=== PATIENT | female | born 1965 | race Caucasian/White ===

== ENCOUNTER 2018-01-17 06:57 | Inpatient (IN) | payer OTHER ==
[2018-01-05 11:54] VITALS: BMI 18.0
--- NOTE | 2018-01-05 12:33 | PAT Medication Instructions ---
Service Date Jan 05, 2018. Current Home Medication List Albuterol Hfa (Ventolin Hfa), 2 PUFFS INH Q4H PRN for RN Amlodipine (Norvasc), 2.5 MG PO QAM Aspirin (Aspirin Ec), 81 MG PO QAM Calcium Carbonate-Vitamin D (Calcium + D), 1 TAB PO BID Docusate Sodium (Docusate Sodium), 2 CAP PO HS Lactulose (Chronulac), 10 GM PO TIDM Metoprolol Tartrate (Lopressor) (Lopressor), 100 MG PO BID Multivitamin (Multivitamin), 1 TAB PO QAM Ranitidine (Zantac), 300 MG PO HS Ropinirole (Requip), 1 MG PO BID Tiotropium Monroe (Spiriva Handihaler), 1 CAP INH QAM Tramadol (Ultram), 100 MG PO TID PRN for RN Trazodone HCl (Trazodone HCl), 200 MG PO HS Trazodone Hcl (Desyrel), 50 MG PO AM Medication Instructions For Your Scheduled Surgery -Contact your surgeon for instructions for: Aspirin (Aspirin Ec), 81 MG PO QAM - Hold the following medications 24 hours prior to surgery: Ropinirole (Requip), 1 MG PO BID - Hold the following medications the morning of surgery: Calcium Carbonate-Vitamin D (Calcium + D), 1 TAB PO BID Lactulose (Chronulac), 10 GM PO TIDM Multivitamin (Multivitamin), 1 TAB PO QAM - Take the following medications the morning of surgery with a sip of water: Albuterol Hfa (Ventolin Hfa), 2 PUFFS INH Q4H PRN for RN (if needed, and bring it with you to the hospital) Amlodipine (Norvasc), 2.5 MG PO QAM Metoprolol Tartrate (Lopressor) (Lopressor), 100 MG PO BID Tiotropium Monroe (Spiriva Handihaler), 1 CAP INH QAM Trazodone Hcl (Desyrel), 50 MG PO AM Tramadol (Ultram), 100 MG PO TID PRN for RN (if needed, can be taken up to four hours before surgery) - Take the following medications as scheduled the night before surgery: Albuterol Hfa (Ventolin Hfa), 2 PUFFS INH Q4H PRN for RN (if needed) Calcium Carbonate-Vitamin D (Calcium + D), 1 TAB PO BID Docusate Sodium (Docusate Sodium), 2 CAP PO HS Lactulose (Chronulac), 10 GM PO TIDM Metoprolol Tartrate (Lopressor) (Lopressor), 100 MG PO BID Ranitidine (Zantac), 300 MG PO HS Trazodone HCl (Trazodone HCl), 200 MG PO HS Tramadol (Ultram), 100 MG PO TID PRN for RN (if needed) If you have any questions please call us at [phone] or [phone] or [phone]
--- NOTE | 2018-01-05 13:10 | DIAGNOSTIC IMAGING REPORT ---
CHEST 2 VIEWS ROUTINE CLINICAL HISTORY: PAT COMPARISON STUDY: No previous studies for comparison. FINDINGS: The bones soft tissues and hemidiaphragms are normal. The cardiomediastinal silhouette is normal. The lungs are clear. The pulmonary vasculature is normal. IMPRESSION: Negative chest. The above report was generated using voice recognition software. It may contain grammatical, syntax or spelling errors. Electronically signed by: Wilber Kemp M.D. 01/05/2018 1:08 PM Dictated Date/Time: 01/05/2018 1:06 PM
[2018-01-05 13:56] LABS: BASO % 0.4 %; BASO ABS # 0.02 K/uL (0-0.2); EOS % 4.5 %; EOS ABS # 0.25 K/uL (0-0.5); HEMATOCRIT 34.6 % (37-47); HEMOGLOBIN 11.9 g/dL (12.0-16.0); IG# 0.01 K/uL (0.00-0.02); LYMPH % 41.5 %; LYMPH ABS # 2.28 K/uL (1.2-3.4); MEAN CORPUSCULAR HEMOGLOBIN 31.6 pg (25-34); MEAN CORPUSCULAR HGB CONC 34.4 g/dl (32-36); MEAN PLATELET VOLUME 10.1 fL (7.4-10.4); MONO % 11.1 %; MONO ABS # 0.61 K/uL (0.11-0.59); NEUT % 42.3 %; NEUT ABS # 2.33 K/uL (1.4-6.5); PLATELET COUNT 202 K/uL (130-400); RED CELL DISTRIBUTION WIDTH SD 43.3 fL (36.4-46.3)
[2018-01-05 14:08] LABS: PTT PATIENT 26.6 SECONDS (21.0-31.0)
[2018-01-05 17:31] LABS: CALCIUM 9.1 mg/dl (8.5-10.1); CREATININE 0.79 mg/dl (0.60-1.20); POTASSIUM 4.3 mmol/L (3.5-5.1)
--- NOTE | 2018-01-16 21:02 | HISTORY & PHYSICAL EXAMINATION ---
DATE OF ADMISSION: 01/17/2018 HISTORY OF PRESENT ILLNESS: She is being preoped for multilevel cervical spondylosis and a 4-level fusion C3-C7 cervical spine. Jadiel has been plagued with neck and arm pain for 2-3 years in duration, has failed all sorts of conservative care, has neck pain associated weakness as well. ALLERGIES: Negative. MEDICATIONS: Numerous, I reviewed these, I am not dictating ____ in her inquiry. PAST SURGICAL HISTORY: Listed. SOCIAL HISTORY: She is moderate smoker, no alcohol use. REVIEW OF SYSTEMS: She admits to neck pain, paresthesias, numbness and tingling. Denies any chest pain, palpitations, shortness of breath. No asthma, wheezing, shortness of breath. No nausea, vomiting. No urgency, frequency. She admits to upper extremity difficulties and neck pain paresis, numbness, tingling, but no lower extremity difficulty. PHYSICAL EXAMINATION: VITAL SIGNS: Blood pressure 120/80, pulse 80, respiratory rate 16, afebrile. GENERAL: Appropriately dressed. Mentation normal. HEENT: Pupils react to light and accommodation. Ear, nose and throat clear. CARDIAC: Normal S1, S2. No S3. LUNGS: Clear to auscultation. No rales, rhonchi, wheezing. ABDOMEN: Soft, nontender. MUSCULOSKELETAL: She has a positive Spurling maneuver with rotation and side bending, causing her pain. She has weakness of wrist extensors, weakness of triceps function as well. Images demonstrate multiple level cervical spondylosis with nerve root compromise. PLAN: Includes an anterior cervical discectomy and fusion C3-C4, C4-C5, C5-C6 and C6-C7 with iliac crest bone graft.
[2018-01-17] VITALS (12 sets, daily range): BP systolic 120–178; BP diastolic 70–88; PULSE 59–83; TEMP 36.3–36.7; O2SAT 100; BMI 18.0
[~2018-01-17] VITALS: Ht 160 cm; Wt 48.4 kg
[~2018-01-17 06:57] MED LIST: ACETAMINOPHEN 1000 MG/100 ML IV IV SCH; AMLO2.5T PO; ASPI81TA28 PO; CALC600T9 PO; CEFAZOLIN 2000MG IV PUSH 15 ML IV SCH; DOCU100C31 PO; DSY/150 PO; LACT10SO17 PO; LACTATED RINGER'S 1000ML 1,000 ML IV SCH; METO100T14 PO; MULT-506 PO; RANI300T2 PO; ROPI1TAB PO; SODIUM CHLORIDE 0.9% 1000ML 1,000 ML IV SCH; SPRIN/30 INH; TRAM-10 PO; TRAZ-119 PO; VNTHFA/IN INH
[2018-01-17] MEDS ORDERED: MIDAZOLAM HCL 1 MG/ML 2ML VIAL ONE (08:27)
[2018-01-17] MEDS ORDERED: FENTANYL CITRATE INJ 50 MCG/1 ML 2 ML VIAL ONE (08:27)
[2018-01-17] MEDS ORDERED: KETAMINE HCL INJ 50 MG/ML 10 ML VIAL ONE (08:39)
[2018-01-17] MEDS ORDERED: GELATIN SPONGE SZ 100 ONE (09:07)
[2018-01-17] MEDS ORDERED: THROMBIN FOR SOLN 20000 UNIT KIT ONE (09:07)
[2018-01-17] MEDS ORDERED: BACITRACIN 50000 UNIT VIAL ONE (09:08)
[2018-01-17] MEDS ORDERED: BUPIVACAINE/EPINEPHRINE 0.5% MPF 1:200,000 30 ML VIAL ONE ×2 (09:08→09:50)
--- NOTE | 2018-01-17 09:14 | History & Physical Bridge Note ---
H&P Re-Evaluation Bridge Note: I have examined the patient, reviewed the History & Physical and in the interval since the performance of the History & Physical I have noted the following changes of clinical significance: No changes noted
[2018-01-17] MEDS ORDERED: HYDROmorphone INJ 2 MG/ML SYR/VIAL ONE (10:12)
[2018-01-17] MEDS ORDERED: ROCURONIUM BROMIDE 10 MG/ML 5 ML VIAL IV ONE (10:19)
[2018-01-17] MEDS ORDERED: PROPOFOL IV EMULSION 10 MG/ML 20 ML VIAL IV ONE (12:06)
[2018-01-17] MEDS ORDERED: ONDANSETRON INJ 2 MG/ML 2 ML VIAL ONE (12:06)
[2018-01-17] MEDS ORDERED: DEXAMETHASONE SOD INJ 4 MG/ML VIAL ONE (12:07)
[2018-01-17] MEDS ORDERED: NEOSTIGMINE METHYLSULFATE 5 MG/5 ML SYR ONE (12:08)
[2018-01-17] MEDS ORDERED: GLYCOPYRROLATE INJ 0.2 MG/ML VIAL ONE (12:08)
--- NOTE | 2018-01-17 12:23 | [facility] Post Operative Brief Note ---
Immediate Operative Summary Operative Date Jan 17, 2018. Pre-Operative Diagnosis Multiple level cervical spondylosis with nerve root compromise. Post-Operative Diagnosis Multiple level cervical spondylosis with nerve root compromise. Procedure(s) Performed C3-C4, C4-C5, C5-C6, C6-C7 Anterior Cervical Discectomy and Fusion with Iliac Crest Bone Graft Surgeon Dr. Viera Sales Promoter Surgeon(s) Javi Lind PA-C Estimated Blood Loss 20ml Findings Consistent with Post-Op Diagnosis Specimens none per surgeon Drains gini Anesthesia Type General Disposition Disposition: Recovery Room / PACU
--- NOTE | 2018-01-17 12:26 | DIAGNOSTIC IMAGING REPORT ---
Cervical SPINE, INTRAOPERATIVE FLUOROSCOPY HISTORY: C3 C7 ACDF.. FLUOROSCOPY TIME: 3 seconds. FINDINGS: Intraoperative fluoroscopy was provided for the L spine . Single fluoroscopic spot image of the cervical spine demonstrate anterior cervical discectomy and fusion from C3 through C7. The hardware is intact. IMPRESSION: Fluoroscopy provided for a C3-C7 ACDF. Electronically signed by: Marco Hill M.D. 01/17/2018 12:25 PM Dictated Date/Time: 01/17/2018 12:23 PM
[2018-01-17] MEDS ORDERED: DEXAMETHASONE INJ 8 MG in SYRINGE 0 ML IV PRN (12:30)
[2018-01-17] MEDS ORDERED: ACETAMINOPHEN IV PRN (12:30)
[2018-01-17] MEDS ORDERED: ONDANSETRON INJ 2 MG/ML 2 ML VIAL IV PRN ×2 (12:30→13:15)
[2018-01-17] MEDS ORDERED: NALOXONE HCL 0.4 MG/1 ML VIAL/CARP IV PRN ×2 (12:30→13:15)
[2018-01-17] MEDS ORDERED: RACEPINEPHRINE 2.25% NEBU SOLN 0.5 ML VIAL INH PRN (12:30)
[2018-01-17] MEDS ORDERED: LORAZEPAM INJ 0.5 MG in SYRINGE 0.75 ML IV PRN (12:30)
[2018-01-17] MEDS ORDERED: HYDROmorphone INJ 0.5 MG/0.5 ML SYR IV PRN (12:30)
[2018-01-17] MEDS ORDERED: ALBUTEROL HFA 8 GM INHALER INH PRN (12:30)
[2018-01-17] MEDS ORDERED: MAGNESIUM HYDROXIDE SUSP 30 ML UDC PO PRN (12:30)
[2018-01-17] MEDS ORDERED: FLUMAZENIL 0.1 MG/1 ML 10 ML VIAL IV PRN (13:15)
[2018-01-17] MEDS ORDERED: EpHEDrine SULFATE INJ 50 MG/ML AMP IV PRN (13:15)
[2018-01-17] MEDS ORDERED: ATROPINE SULFATE 0.1 MG/ML 5ML SYR IV PRN (13:15)
[2018-01-17] MEDS ORDERED: HYDROmorphone INJ 2 MG/ML SYR/VIAL IV PRN (13:15)
[2018-01-17] MEDS ORDERED: PROMETHAZINE HCL INJ 12.5 MG in SODIUM CHLORIDE 0.9% 50ML 50 ML IV PRN (13:15)
[2018-01-17] MEDS ORDERED: LABETALOL HCL IV 5 MG/ML 20ML IV PRN (13:15)
--- NOTE | 2018-01-17 13:19 | OPERATIVE REPORT ---
DATE OF OPERATION: 01/17/2018 PREOPERATIVE DIAGNOSES: Cervical spondylosis, cervical spine C3-4, C4-5, C5-6 and C6-7, spinal cord compression C3-4, C4-5, C5-6, C6-7. POSTOPERATIVE DIAGNOSES: Same. w PROCEDURES: Include an anterior cervical decompression C3-4, C4-5, C5-6 and C6-7, anterior interbody spacers and fusion provided at those same levels. Left iliac crest autograft. DESCRIPTION OF PROCEDURE: The patient was taken to the operating room and general intubated anesthetic provided to the patient. Anderson catheter administered. She was scrubbed first with Betadine then prepped with ChloraPrep. We draped her sterile. We made a transverse skin incision roughly over C5 vertebrae dissecting the soft tissue with care and with relative ease we came on to the anterior aspect of the spinal column. I was able to carefully do a complete discectomy initially at C4-5 up to C3-4 down to C5-6 and C6-7. We kept with the same transverse skin incision. I was very pleased with the amount of decompression, amount of disk removed, visibility was perfect. We then selected the Globus implant called coalition. The coalition devices were placed in the vacated intervals at C3-4, C4-5, C5-6 and C6-7 various sizes. They were packed with autograft. We then transfixed these with cortical cancellous screws up down each level. We irrigated thoroughly. All bleeding surfaces were taken care of. There was no excess bleeding. We irrigated thoroughly. We then closed fascia to fascia and over the drain. Sterile dressings applied as well. The left iliac crest was also harvested, the autograft from the site, skin incision, fascial incision. We harvested the autograft, was placed in the vertebrae as stated. This then as well was closed in an interrupted layered fashion. Sterile dressings applied throughout. Cervical collar applied as well. Patient extubated to PACU, improved, stable. There were no apparent complications. EBL total approximately 20 mL. Sponge and needle count correct at the close. I attest to the content of the Intraoperative Record and any orders documented therein. Any exception s are noted below.
[2018-01-17] MEDS ORDERED: HYDROmorphone INJ 0.5 MG/0.5 ML SYR ONE (13:37)
--- NOTE | 2018-01-17 14:05 | Anesthesiology Progress Note ---
Anesthesia Post Op Note Date & Time Jan 17, 2018 at 14:04 Vital Signs Pain Intensity: 5 Vital Signs Past 12 Hours Date Time Temp Pulse Resp B/P (MAP) Pulse Ox O2 Delivery O2 Flow Rate FiO2 01/17/18 14:00 64 14 136/77 100 Nasal Cannula 4 01/17/18 13:50 36.2 66 14 139/77 100 Nasal Cannula 4 01/17/18 13:40 75 13 146/79 100 Nasal Cannula 4 01/17/18 13:30 72 14 146/77 100 Nasal Cannula 4 01/17/18 13:20 67 12 134/87 100 Nasal Cannula 4 01/17/18 13:10 66 13 138/74 99 Oxymask 10 01/17/18 13:00 71 15 136/79 98 Oxymask 10 01/17/18 12:51 36.0 74 12 151/83 100 Oxymask 10 01/17/18 07:50 36.6 59 20 178/88 100 Room Air Notes pt is stable;neurologically intact;no c/o difficulty breathing.
[2018-01-17] MEDS: HYDROmorphone INJ 2 MG/ML SYR/VIAL IV PRN ×2 (16:32→21:41)
[2018-01-17] MEDS ORDERED: LACTULOSE SYRUP 10 GM/15 ML BTL 473 ML PO SCH (17:45)
[2018-01-17] MEDS: CEFAZOLIN IV 1,000 MG in SYRINGE 0 ML IV SCH (18:16)
[2018-01-17] MEDS: LACTULOSE SYRUP 10 GM/15 ML BTL 473 ML PO SCH (18:17)
[2018-01-17] MEDS: SODIUM CHLORIDE 0.9% 1000ML 1,000 ML IV SCH (18:20)
[2018-01-17] MEDS ORDERED: DOCUSATE SODIUM 100 MG CAP PO SCH (21:00)
[2018-01-17] MEDS: METOPROLOL TARTRATE 100 MG TAB PO SCH (21:21)
[2018-01-17] MEDS: TRAZODONE HCL 100 MG TAB PO SCH (21:21)
[2018-01-17] MEDS: RANITIDINE HCL 150 MG TAB PO SCH (21:22)
[2018-01-17] MEDS: DOCUSATE SODIUM 100 MG CAP PO SCH (21:22)
[2018-01-17] MEDS: ROPINIROLE HCL 1 MG TAB PO SCH (21:22)
[2018-01-17] MEDS: CALCIUM 600MG + VIT D 400 IU TAB PO SCH (21:26)
[2018-01-17] MEDS ORDERED: COUGH DROP (SUGAR FREE) LOZ 24 LOZ/1 BOX LOZ ONE (23:33)
[2018-01-17] MEDS: OXYCODONE HCL IR 5 MG TAB (IMMEDIATE RELEASE) PO PRN (23:36)
[2018-01-17] MEDS ORDERED: COUGH DROP (SUGAR FREE) LOZ 24 LOZ/1 BOX LOZ PRN (23:45)
[2018-01-18] VITALS (18 sets, daily range): BP systolic 115–150; BP diastolic 73–89; PULSE 63–90; TEMP 36.4–37.1; O2SAT 95–100; Ht 160 cm; Wt 48.4 kg
[2018-01-18] MEDS: CEFAZOLIN IV 1,000 MG in SYRINGE 0 ML IV SCH ×2 (02:29→09:17)
[2018-01-18] MEDS: HYDROmorphone INJ 2 MG/ML SYR/VIAL IV PRN ×3 (03:21→23:27)
[2018-01-18] MEDS: SODIUM CHLORIDE 0.9% 1000ML 1,000 ML IV SCH ×2 (05:16→21:20)
[2018-01-18] MEDS: OXYCODONE HCL IR 5 MG TAB (IMMEDIATE RELEASE) PO PRN ×2 (05:22→12:14)
--- NOTE | 2018-01-18 08:08 | Anesthesiology Progress Note ---
Anesthesia Post Op Note Date & Time Jan 18, 2018 at 08:08 Vital Signs Vital Signs Past 12 Hours Date Time Temp Pulse Resp B/P (MAP) Pulse Ox O2 Delivery O2 Flow Rate FiO2 01/18/18 07:26 69 14 97 Room Air 01/18/18 07:15 100 Room Air 01/18/18 07:11 36.6 72 16 131/89 100 Room Air 01/18/18 06:00 97 Room Air 01/18/18 05:15 36.5 66 12 115/73 100 Nasal Cannula 2.0 Humidified Oxygen 01/18/18 03:15 36.4 63 12 135/82 100 Nasal Cannula 2.0 Humidified Oxygen 01/18/18 03:09 64 16 100 Nasal Cannula 2.0 01/18/18 01:15 36.5 73 12 126/78 100 Nasal Cannula 2.0 Humidified Oxygen 01/17/18 23:15 Nasal Cannula 2.0 Humidified Oxygen 01/17/18 23:12 36.7 67 16 120/70 (87) 100 Nasal Cannula 2.0 Humidified Oxygen 01/17/18 23:07 69 16 100 Nasal Cannula 2.0 01/17/18 21:15 36.5 83 18 149/76 100 Nasal Cannula 2.0 Notes Mental Status: alert / awake / arousable, participated in evaluation Pt Amnestic to Procedure: Yes Nausea / Vomiting: adequately controlled Pain: adequately controlled Airway Patency, RR, SpO2: stable & adequate BP & HR: stable & adequate Hydration State: stable & adequate Anesthetic Complications: no major complications apparent
[2018-01-18] MEDS: LACTULOSE SYRUP 10 GM/15 ML BTL 473 ML PO SCH ×3 (08:38→19:08)
[2018-01-18] MEDS: ASPIRIN 81 MG ECTAB PO SCH (08:38)
[2018-01-18] MEDS: METOPROLOL TARTRATE 100 MG TAB PO SCH ×2 (08:38→21:00)
[2018-01-18] MEDS: CALCIUM 600MG + VIT D 400 IU TAB PO SCH ×2 (08:39→21:00)
[2018-01-18] MEDS: ROPINIROLE HCL 1 MG TAB PO SCH ×2 (08:39→21:00)
[2018-01-18] MEDS: AMLODIPINE BESYLATE 5 MG TAB PO SCH (08:39)
[2018-01-18] MEDS: MULTIVITAMIN TAB PO SCH ×2 (08:39→09:00)
[2018-01-18] MEDS: TIOTROPIUM BROMIDE 5 PUFF/90 MCG INH INH SCH (08:40)
[2018-01-18] MEDS ORDERED: NURSING VERBAL MED ORDER ONE (20:00)
[2018-01-18] MEDS: RANITIDINE HCL 150 MG TAB PO SCH (21:00)
[2018-01-18] MEDS: DOCUSATE SODIUM 100 MG CAP PO SCH (21:00)
[2018-01-18] MEDS: TRAZODONE HCL 100 MG TAB PO SCH (21:00)
[2018-01-18] MEDS: DEXAMETHASONE INJ 10 MG in SYRINGE 0 ML IV SCH (21:20)
[2018-01-19] VITALS (14 sets, daily range): BP systolic 121–155; BP diastolic 74–84; PULSE 71–97; TEMP 36.6–36.8; O2SAT 95–98
[2018-01-19] MEDS: HYDROmorphone INJ 2 MG/ML SYR/VIAL IV PRN (02:28)
[2018-01-19] MEDS: DEXAMETHASONE INJ 10 MG in SYRINGE 0 ML IV SCH ×4 (03:12→21:14)
[2018-01-19] MEDS ORDERED: BISACODYL 5 MG TABEC PO PRN (06:00)
[2018-01-19] MEDS ORDERED: BISACODYL 10 MG SUPP PR PRN (06:00)
--- NOTE | 2018-01-19 08:59 | Discharge Instructions ---
Discharge Instructions Date of Service Jan 19, 2018. Admission Reason for Admission: Cervical Spondylosis Discharge Discharge Diagnosis / Problem: same Discharge Goals Goal(s): Improve function Activity Recommendations Activity Limitations: as noted below Lifting Limitations: gradually increase as tolerated Exercise/Sports Limitations: until after follow-up appointment . Current Hospital Diet Patient's current hospital diet: Full Liquid Diet Discharge Diet Recommended Diet: Full Liquid Diet Procedures Procedures Performed: C3-C4, C4-C5, C5-C6, C6-C7 Anterior Cervical Discectomy and Fusion with Iliac Crest Bone Graft Pending Studies Studies pending at discharge: no Medical Emergencies . Who to Call and When: Medical Emergencies: If at any time you feel your situation is an emergency, please call 911 immediately. . Non-Emergent Contact Non-Emergency issues call your: Primary Care Provider . "Provider Documentation" section prepared by Robe Viera. .
[2018-01-19] MEDS: MULTIVITAMIN TAB PO SCH (09:00)
[2018-01-19] MEDS: ROPINIROLE HCL 1 MG TAB PO SCH ×2 (09:00→21:16)
[2018-01-19] MEDS: CALCIUM 600MG + VIT D 400 IU TAB PO SCH ×2 (09:00→21:15)
[2018-01-19] MEDS: ASPIRIN 81 MG ECTAB PO SCH (09:00)
[2018-01-19] MEDS: TIOTROPIUM BROMIDE 5 PUFF/90 MCG INH INH SCH (09:14)
[2018-01-19] MEDS: LACTULOSE SYRUP 10 GM/15 ML BTL 473 ML PO SCH ×3 (09:15→18:12)
[2018-01-19] MEDS: SODIUM CHLORIDE 0.9% 1000ML 1,000 ML IV SCH ×2 (09:26→23:08)
[2018-01-19] MEDS: AMLODIPINE BESYLATE 5 MG TAB PO SCH (09:27)
[2018-01-19] MEDS: METOPROLOL TARTRATE 100 MG TAB PO SCH ×2 (09:27→21:15)
[2018-01-19] MEDS: OXYCODONE HCL IR 5 MG TAB (IMMEDIATE RELEASE) PO PRN ×2 (10:57→19:21)
[2018-01-19] MEDS: DOCUSATE SODIUM 100 MG CAP PO SCH (21:15)
[2018-01-19] MEDS: TRAZODONE HCL 100 MG TAB PO SCH (21:15)
[2018-01-19] MEDS: RANITIDINE HCL 150 MG TAB PO SCH (21:16)
[2018-01-20 03:01] VITALS: BP 147/63; PULSE 79; TEMP 36.5; O2SAT 97
[2018-01-20] MEDS: DEXAMETHASONE INJ 10 MG in SYRINGE 0 ML IV SCH ×2 (03:01→08:53)
[2018-01-20 03:28] VITALS: PULSE 76; O2SAT 96
[2018-01-20 06:52] VITALS: BP 168/68; PULSE 74; TEMP 36.4; O2SAT 99
[2018-01-20] MEDS: OXYCODONE HCL IR 5 MG TAB (IMMEDIATE RELEASE) PO PRN (07:34)
[2018-01-20 07:35] VITALS: PULSE 80; O2SAT 98
[2018-01-20] MEDS ORDERED: HYDR-4383 PO (08:35)
[2018-01-20] MEDS: LACTULOSE SYRUP 10 GM/15 ML BTL 473 ML PO SCH (08:52)
[2018-01-20] MEDS: TIOTROPIUM BROMIDE 5 PUFF/90 MCG INH INH SCH (08:53)
[2018-01-20] MEDS: CALCIUM 600MG + VIT D 400 IU TAB PO SCH (08:54)
[2018-01-20] MEDS: ASPIRIN 81 MG ECTAB PO SCH (08:55)
[2018-01-20] MEDS: METOPROLOL TARTRATE 100 MG TAB PO SCH (08:55)
[2018-01-20] MEDS: AMLODIPINE BESYLATE 5 MG TAB PO SCH (08:56)
[2018-01-20] MEDS: ROPINIROLE HCL 1 MG TAB PO SCH (08:57)
[2018-01-20] MEDS: MULTIVITAMIN TAB PO SCH (08:58)
[2018-01-20 09:14] VITALS: BP 168/68; PULSE 80; TEMP 36.4; O2SAT 98
--- NOTE | 2018-01-20 10:09 | DISCHARGE SUMMARY ---
She is alert, oriented young lady. She was admitted on the 01/17/2018, discharged home on the 01/20/2018, improved, stable condition. ADMITTING DIAGNOSES: Cervical spondylosis, spinal cord compression. The patient did well. She stayed 1 extra day than I anticipated. She has some difficulty swallowing, swallowing medication plus taking p.o. Her wounds remained clean and dry. She is afebrile in the morning of the , she was improved, stable. No confusion. No shortness of breath. No chest pain. Taking p.o. Alert, oriented with her spouse. She will be discharged home in improved stable condition. We will see her back in the office in approximately 14 days. She has instructions, precautions, on her chart a prescription for hydrocodone for pain and a walker with wheels.
== END 2018-01-20 10:49 | disposition home or self-care (01) | DRG 473 ==
LOC: C.ACU 06:57 → C.3E 09:00 → ENRESERV 13:38
PROVIDERS: ADMIT Orthopaedic Surgery Orthopaedic Surgery of the Spine; ATTEND Orthopaedic Surgery Orthopaedic Surgery of the Spine
PROC: 0RT30ZZ Resection of Cervical Vertebral Disc, Open Approach (ICD-10-PCS; principal; 2018-01-17 09:30)
PROC: 0RG20A0 Fusion of 2 or more Cervical Vertebral Joints with Interbody Fusion Device, Anterior Approach, Anterior Column, Open Approach (ICD-10-PCS; principal; 2018-01-17 09:30)
DX: M47.22 Other spondylosis with radiculopathy, cervical region (principal); R13.10 Dysphagia, unspecified; J44.9 Chronic obstructive pulmonary disease, unspecified; I10 Essential (primary) hypertension; K21.9 Gastro-esophageal reflux disease without esophagitis; G25.81 Restless legs syndrome; D64.9 Anemia, unspecified; M81.0 Age-related osteoporosis without current pathological fracture; F41.9 Anxiety disorder, unspecified; F17.210 Nicotine dependence, cigarettes, uncomplicated; Z79.82 Long term (current) use of aspirin; Z79.899 Other long term (current) drug therapy